=== PATIENT | male | born 1995 | race Caucasian/White ===

== ENCOUNTER 2018-08-30 16:51 | Emergency (ER) | payer OTHER ==
[2018-08-30 18:12] VITALS: BP 137/80
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
== END 2018-08-30 18:40 | disposition home or self-care (01) ==
LOC: UCCORT 16:51
DX: H81.10 Benign paroxysmal vertigo, unspecified ear (principal); F17.210 Nicotine dependence, cigarettes, uncomplicated
CPT/HCPCS: 99213; G0463